=== PATIENT | male | born 1955 | race Hispanic/Latino ===

== ENCOUNTER → 2019-07-16 | Outpatient (CLI) | payer BC | END | disposition home or self-care (01) | LOC: RAH 10:39 | PROVIDERS: ATTEND Internal Medicine | DX: M19.042 Primary osteoarthritis, left hand (principal); M19.041 Primary osteoarthritis, right hand | CPT/HCPCS: 73130 ==

== ENCOUNTER 2020-03-09 11:59 | Emergency (ER) | payer BC ==
[2020-03-09 12:32] LABS: BASOPHILS % (AUTO) 0.3 % (0.0-5.0); EOSINOPHILS % (AUTO) 0.3 % (0.0-8.0); HEMATOCRIT 47.9 % (42-54); LYMPHOCYTES % (AUTO) 12.1 % (21.0-51.0); MEAN CORPUSCULAR HEMOGLOBIN 33.1 pg (27.0-33.0); MEAN CORPUSCULAR HGB CONC 35.1 g/dL (32.0-36.0); MEAN CORPUSCULAR VOLUME 94.3 fL (79-99); MONOCYTES % (AUTO) 7.5 % (3.0-13.0); NEUTROPHILS % (AUTO) 79.5 % (40.0-77.0); PLATELET COUNT (AUTO) 245 K/uL (130-400); RED BLOOD CELL COUNT(AUTO) 5.08 MIL/uL (4.50-6.20); RED CELL DISTRIBUTION WIDTH 11.4 % (11.0-15.5); WHITE BLOOD COUNT (AUTO) 14.3 K/uL (4.8-10.8)
[2020-03-09 12:34] LABS: APPEARANCE,URINE Clear (CLEAR); BILIRUBIN,URINE Negative (NEGATIVE); COLOR,URINE Yellow (YELLOW); GLUCOSE, URINE (UA) TRACE mg/dL (NEGATIVE); KETONES,URINE Negative (NEGATIVE); LEUKOCYTE ESTERASE ,URINE Negative (NEGATIVE); NITRATE,URINE Negative (NEGATIVE); OCCULT BLOOD,URINE Trace (NEGATIVE); PH,URINE 5.5 (5.0-8.0); PROTEIN,URINE Trace mg/dL (NEGATIVE); UROBILINOGEN,URINE 0.2 mg/dL (0.2-1.0)
[2020-03-09 12:38] LABS: CREATININE 1.1 mg/dL (0.5-1.5); POTASSIUM 3.9 mmol/L (3.5-5.1)
[2020-03-09] MEDS ORDERED: ONDANSETRON HCL 4 MG/2 ML VIAL ONE (12:45)
[2020-03-09] MEDS ORDERED: KETOROLAC TROMETHAMINE 30MG/ML ONE (12:45)
[2020-03-09 12:57] LABS: ALBUMIN 4.2 g/dL (3.5-5.0); BILIRUBIN,TOTAL 0.8 mg/dL (0.2-1.0); TOTAL PROTEIN, SERUM 8.2 g/dL (6.0-8.3)
[2020-03-09 13:16] LABS: BACTERIA,URINE Rare /HPF (None Seen); RBC,URINE 0-1 /HPF (0-1); SQUAMOUS EPITHELIAL CELL,UR Rare /HPF (0-2); WBC,URINE 0-1 /HPF (0-1)
[2020-03-09] MEDS ORDERED: CEFTRIAXONE SODIUM 2 GM VIAL ONE (15:16)
[2020-03-09] MEDS ORDERED: SODIUM CHLORIDE 0.9% 100 ML IV ONE (15:19)
== END 2020-03-09 16:13 | disposition short-term general hospital (02) ==
LOC: EDH 11:59
DX: K35.80 Unspecified acute appendicitis (principal); Z20.828 Contact with and (suspected) exposure to other viral communicable diseases
CPT/HCPCS: 36415; 74176; 80053; 81001; 82150; 82550; 83690; 84484; 85025; 87040 ×2; 87426; 93005; 96361; 96374; 96375; 99285; J0696; J1885; J2405

== ENCOUNTER → 2022-09-07 | Outpatient (CLI) | payer BC ==
[~2022-09-07] MED LIST: ALBU5SOL19 IH; ASPI-1197 PO; EMPA10TA PO; FINA5TAB41 PO; LORA10TA7 PO; METF-527 PO; METF-891 PO; OXYB5TAB15 PO; SILO8CAP6 PO; TADA20TA70 PO
[2022-09-07 12:22] LABS: BASOPHILS % (AUTO) 0.5 % (0.0-5.0); EOSINOPHILS % (AUTO) 3.7 % (0.0-8.0); HEMATOCRIT 50.4 % (42-54); LYMPHOCYTES % (AUTO) 29.8 % (21.0-51.0); MEAN CORPUSCULAR HEMOGLOBIN 31.2 pg (27.0-33.0); MEAN CORPUSCULAR HGB CONC 33.3 g/dL (32.0-36.0); MEAN CORPUSCULAR VOLUME 93.5 fL (79-99); NEUTROPHILS % (AUTO) 56.6 % (40.0-77.0); PLATELET COUNT (AUTO) 233 K/uL (130-400); RED BLOOD CELL COUNT(AUTO) 5.39 MIL/uL (4.50-6.20); RED CELL DISTRIBUTION WIDTH 12.5 % (11.0-15.5); WHITE BLOOD COUNT (AUTO) 7.4 K/uL (4.8-10.8)
[2022-09-07 12:41] LABS: ALBUMIN 3.7 g/dL (3.5-5.0); POTASSIUM 4.1 mmol/L (3.5-5.1); TOTAL PROTEIN, SERUM 7.5 g/dL (6.0-8.3)
[2022-09-07 12:44] LABS: HEMOGLOBIN A1C 7.1 % (4.0-6.0)
== END | disposition home or self-care (01) ==
LOC: LAB 09:15
PROVIDERS: ATTEND Student in an Organized Health Care Education/Training Program
DX: R07.9 Chest pain, unspecified (principal); E78.5 Hyperlipidemia, unspecified; Z79.899 Other long term (current) drug therapy
CPT/HCPCS: 36415; 80053; 80061; 83036; 85025

== ENCOUNTER → 2022-12-20 | Outpatient (CLI) | payer BC ==
[2022-12-20 12:45] LABS: CHOLESTEROL 142 mg/dL (<200); HDL CHOLESTEROL 39 mg/dL (29-71); LDL DIRECT 98 mg/dL (0-99); TRIGLYCERIDES 71 mg/dL (30-200)
== END | disposition home or self-care (01) ==
LOC: LAB 08:07
PROVIDERS: ATTEND Student in an Organized Health Care Education/Training Program
DX: E78.5 Hyperlipidemia, unspecified (principal)
CPT/HCPCS: 36415; 80061

== ENCOUNTER → 2023-09-14 | Outpatient (CLI) | payer BC ==
[~2023-09-14] VITALS: Ht 167.6 cm; Wt 94.0 kg
[~2023-09-14] MED LIST changes: +ANAS1TAB49 PO; +BENZ-226 PO; +CHOL500050 PO; +CYAN10007 IM; +EZET10TA48 PO; +METF-910 PO; +MIRA25TA PO; +MIRA50TA PO; -OXYB5TAB15 PO; +OXYB5TAB20 PO; +PRED10TA3 PO; +SEMA0.258 SQ; +TADA5TAB13 PO; +TESTOSTERONE IM; +VITAMIN D
[2023-09-14 13:32] LABS: BASOPHILS # (AUTO) 0.06 K/uL (0.00-0.20); BASOPHILS % (AUTO) 0.5 % (0.0-5.0); EOSINOPHILS # (AUTO) 0.21 K/uL (0.00-0.70); EOSINOPHILS % (AUTO) 1.8 % (0.0-8.0); HEMATOCRIT 48.7 % (42-54); IMMATURE GRANULOCYTE ABSOLUTE 0.04 K/uL (0-1); LYMPHOCYTES # (AUTO) 2.9 K/uL (1.0-4.8); LYMPHOCYTES % (AUTO) 25.5 % (21.0-51.0); MEAN CORPUSCULAR HGB CONC 34.9 g/dL (32.0-36.0); MEAN CORPUSCULAR VOLUME 94.6 fL (79-99); MONOCYTES % (AUTO) 8.3 % (3.0-13.0); NEUTROPHILS # (AUTO) 7.2 K/uL (1.8-7.7); NEUTROPHILS % (AUTO) 63.5 % (40.0-77.0); PLATELET COUNT (AUTO) 273 K/uL (130-400); RED BLOOD CELL COUNT(AUTO) 5.15 MIL/uL (4.50-6.20); RED CELL DISTRIBUTION WIDTH 12.8 % (11.0-15.5); WHITE BLOOD COUNT (AUTO) 11.4 K/uL (4.8-10.8)
[2023-09-14 13:52] VITALS: BP 133/76; PULSE 98; RESP 18
[2023-09-14 13:57] LABS: APPEARANCE,URINE CLEAR (CLEAR); BILIRUBIN,URINE NEGATIVE (NEGATIVE); COLOR,URINE YELLOW (YELLOW); GLUCOSE, URINE (UA) >=1000 mg/dL (NEGATIVE); KETONES,URINE 5 mg/dL (NEGATIVE); LEUKOCYTE ESTERASE ,URINE 250 Leu/uL (NEGATIVE); NITRATE,URINE NEGATIVE (NEGATIVE); PROTEIN,URINE 20 mg/dL (NEGATIVE); UROBILINOGEN,URINE 0.2 mg/dL (0.2-1.0)
[2023-09-14 14:03] LABS: ADD UA MICROSCOPIC YES
[2023-09-14 14:07] LABS: BACTERIA,URINE FEW /HPF (None Seen); MUCUS,URINE RARE LPF (None Seen); SQUAMOUS EPITHELIAL CELL,UR RARE /HPF (0-2); UNCLASSIFIED CRYSTAL 2 /HPF (None Seen); WBC,URINE TNTC /HPF (0-1)
[2023-09-14 14:13] LABS: CREATININE 1.1 mg/dL (0.5-1.3); POTASSIUM 4.2 mmol/L (3.5-5.1)
[2023-09-14 15:25] LABS: INR <= 0.93 (0.85-1.15); PROTHROMBIN TIME 10.9 SEC (9.6-11.6)
[2023-09-14 15:26] LABS: PARTIAL THROMBOPLASTIN TIME 25.4 SEC (26.3-35.5)
== END | disposition home or self-care (01) ==
LOC: DAH 10:00 → EDSTATUS 11:00
PROVIDERS: ATTEND Urology
DX: N40.1 Benign prostatic hyperplasia with lower urinary tract symptoms (principal); N39.41 Urge incontinence
CPT/HCPCS: 80048; 85025; 85610; 85730; 87077; 87088; 87186; 81001; 36415; 71045; 93005; A6260

== ENCOUNTER → 2023-10-12 | Outpatient (CLI) | payer BC, MEDICARE ==
[~2023-10-12] VITALS: Ht 167.6 cm; Wt 95.2 kg
[~2023-10-12] MED LIST changes: -ALBU5SOL19 IH; -ASPI-1197 PO; +BOTULINUM TOXIN TYPE A 100 UNITS/VIAL INJ SCH; -METF-527 PO; -METF-891 PO; -SILO8CAP6 PO; -TADA20TA70 PO; -VITAMIN D
[2023-10-12 10:57] LABS: BASOPHILS # (AUTO) 0.06 K/uL (0.00-0.20); BASOPHILS % (AUTO) 0.8 % (0.0-5.0); EOSINOPHILS # (AUTO) 0.34 K/uL (0.00-0.70); EOSINOPHILS % (AUTO) 4.6 % (0.0-8.0); IMMATURE GRANULOCYTE ABSOLUTE 0.04 K/uL (0-1); LYMPHOCYTES # (AUTO) 1.9 K/uL (1.0-4.8); LYMPHOCYTES % (AUTO) 25.6 % (21.0-51.0); MEAN CORPUSCULAR HEMOGLOBIN 33.1 pg (27.0-33.0); MEAN CORPUSCULAR HGB CONC 33.5 g/dL (32.0-36.0); MEAN CORPUSCULAR VOLUME 98.6 fL (79-99); MONOCYTES # (AUTO) 0.7 K/uL (0.1-1.0); NEUTROPHILS # (AUTO) 4.5 K/uL (1.8-7.7); NEUTROPHILS % (AUTO) 59.5 % (40.0-77.0); PLATELET COUNT (AUTO) 272 K/uL (130-400); RED BLOOD CELL COUNT(AUTO) 5.17 MIL/uL (4.50-6.20); WHITE BLOOD COUNT (AUTO) 7.5 K/uL (4.8-10.8)
[2023-10-12 11:05] LABS: APPEARANCE,URINE CLEAR (CLEAR); BILIRUBIN,URINE NEGATIVE (NEGATIVE); COLOR,URINE LIGHT-YELLOW (YELLOW); GLUCOSE, URINE (UA) NEGATIVE (NEGATIVE); KETONES,URINE NEGATIVE (NEGATIVE); LEUKOCYTE ESTERASE ,URINE 75 Leu/uL (NEGATIVE); NITRATE,URINE 2+ (NEGATIVE); PROTEIN,URINE 20 mg/dL (NEGATIVE); UROBILINOGEN,URINE 0.2 mg/dL (0.2-1.0)
[2023-10-12 11:06] LABS: ADD UA MICROSCOPIC YES
[2023-10-12 11:07] VITALS: BP 149/79; PULSE 89; RESP 18
[2023-10-12 11:09] LABS: CREATININE 1.2 mg/dL (0.5-1.3); POTASSIUM 4.2 mmol/L (3.5-5.1)
[2023-10-12 11:13] LABS: INR <= 0.93 (0.85-1.15); PROTHROMBIN TIME 10.8 SEC (9.6-11.6)
[2023-10-12 11:14] LABS: PARTIAL THROMBOPLASTIN TIME 25.7 SEC (26.3-35.5)
[2023-10-12 11:17] LABS: BACTERIA,URINE Moderate /HPF (None Seen); RBC,URINE 0-1 /HPF (0-1); SQUAMOUS EPITHELIAL CELL,UR Rare /HPF (0-2)
== END | disposition home or self-care (01) ==
LOC: DAH 10:00 → EDSTATUS 10-25 08:00
PROVIDERS: ATTEND Urology
DX: N39.41 Urge incontinence (principal); N40.1 Benign prostatic hyperplasia with lower urinary tract symptoms
CPT/HCPCS: 80048; 85025; 85610; 85730; 87077; 87088; 87186; 81001; 36415; 93005; A6260

== ENCOUNTER → 2023-11-26 | Outpatient (CLI) | payer BC, MEDICARE ==
[~2023-11-26] MED LIST changes: -BOTULINUM TOXIN TYPE A 100 UNITS/VIAL INJ SCH; -CYAN10007 IM; -MIRA25TA PO; -TESTOSTERONE IM
[2023-11-26 12:54] LABS: CHOLESTEROL 172 mg/dL (<200); HDL CHOLESTEROL 43 mg/dL (29-71); LDL DIRECT 108 mg/dL (0-99); TRIGLYCERIDES 145 mg/dL (30-200)
== END | disposition home or self-care (01) ==
LOC: LAB 08:53
PROVIDERS: ATTEND Student in an Organized Health Care Education/Training Program
DX: E78.5 Hyperlipidemia, unspecified (principal)
CPT/HCPCS: 36415; 80061

== ENCOUNTER → 2024-06-19 | Outpatient (CLI) | payer BC ==
[~2024-06-19] MED LIST changes: +TADA-54 PO; -TADA5TAB13 PO
[2024-06-19 11:08] LABS: CHOLESTEROL 94 mg/dL (<200); HDL CHOLESTEROL 34 mg/dL (29-71); LDL DIRECT 52 mg/dL (0-99); TRIGLYCERIDES 83 mg/dL (30-200)
== END | disposition home or self-care (01) ==
LOC: LAB 08:57
PROVIDERS: ATTEND Student in an Organized Health Care Education/Training Program
DX: E78.5 Hyperlipidemia, unspecified (principal)
CPT/HCPCS: 36415; 80061